=== PATIENT | male | born 1970 | race Caucasian/White ===

== ENCOUNTER 2016-11-09 07:01 | Emergency (ER) | payer SELFPAY ==
--- NOTE | ~2016-11-09 | ER ---
PATIENT'S NAME: PHYLLIS ACEVEDO [facility] AGE: 46 Y [address] ROOM: [place] [address] LOCATION: [facility] ADMIT DATE: 11/09/2016 ER/Outpatient Report DISCHARGE DATE: 11/09/2016 FAMILY PHYSICIAN: PHYSICIAN, NO ATTENDING PHYSICIAN: Yesenia Nunn Time of Arrival: 0701 hours. Time of Evaluation/Seen: 0707 hours. IDENTIFICATION: A 46-year-old male. CHIEF COMPLAINT: Chest pain. HISTORY OF PRESENT ILLNESS: The patient is a 46-year-old male who on Saturday night was changing a tire, since that time, he has had left-sided chest wall pain, worse with cough and deep breathing and movement. No other injury. No history of coronary artery disease, hypertension, diabetes, or hyperlipidemia that he is aware of. The patient has been evaluated for chest pain a few years ago and had a stress test that was normal in February of 2014. He does have a family history of premature coronary artery disease in a brother. PAST MEDICAL HISTORY: ALLERGIES: PENICILLIN. CURRENT MEDICATIONS: Abilify and Lamictal. MEDICAL PROBLEMS: Epilepsy and bipolar disorder. PAST SURGICAL HISTORY: Prior Surgeries: 1. Right shoulder surgery. 2. Left rotator cuff repair. SOCIAL HISTORY: The patient lives here in [place]. 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 He is . Tobacco use, denies. Alcohol use, denies. Drug use, denies. FAMILY HISTORY: PATIENT'S NAME: PHYLLIS ACEVEDO [facility] AGE: 46 Y [address] ROOM: [place] [address] LOCATION: [facility] ADMIT DATE: 11/09/2016 ER/Outpatient Report DISCHARGE DATE: 11/09/2016 FAMILY PHYSICIAN: PHYSICIAN, NO ATTENDING PHYSICIAN: Yesenia Nunn A Brother had coronary artery disease in his 30s. Grandmother had coronary artery disease later in life, and a brother with diabetes. Mother with end- stage renal disease, on dialysis. REVIEW OF SYSTEMS: All systems are reviewed and negative other than what is noted in the HPI. The patient has no associated symptoms. Pain is worse with a deep breath, but no shortness of breath. No diaphoresis. No nausea or vomiting. No radiation of the pain. PHYSICAL EXAMINATION: VITAL SIGNS: Weight 107 kg. Blood pressure 127/86, pulse 66, respiratory rate is 20, temperature 97.1, and sats 92% on room air. GENERAL: A 46-year-old male in no acute distress. HEENT: Head; normocephalic and atraumatic. Ears; TMs translucent in both ears. Nose; mucosa pink, no lesions. Mouth; no lesions. Pharynx, benign. NECK: Supple. No lymphadenopathy. LUNGS: Clear to auscultation. HEART: Regular rate and rhythm. ABDOMEN: Bowel sounds present. Soft, nondistended, and nontender. SKIN: [place], warm, and dry. No lesions or rashes noted. NEUROLOGIC: The patient is alert and oriented x4. Cranial nerves 2 through 12 grossly intact. Motor strength 5/5 throughout. Sensation is intact to light touch. No lower extremity edema. EMERGENCY DEPARTMENT COURSE: The patient is tender to palpation of his left anterior chest wall and that does reproduce his pain. The patient was given 4 baby aspirin. Labs were obtained as well as EKG and chest x-ray. EKG is normal sinus rhythm at 62 beats per minute. No acute ST elevation or depression. T-wave inversion noted in lead III. No change from previous EKG dated 02/26/2014. EKG at 0200 hours, normal sinus rhythm. No acute ST elevation or depression. T-wave inversion in lead III, and no change when compared to earlier EKG. Hemoglobin 15.9, hematocrit 47.5, platelets 184,000, white count 6.2, and normal differential. INR is 0.97. Sodium 140, potassium 3.9, chloride 108, CO2 of 25, BUN 12, creatinine 1.0, and blood sugar 107. Liver enzymes normal. Magnesium 2.3. CPK 112, CK-MB 2.7, and troponin I is less than 0.040. 90- minute enzymes; CPK 105, CK-MB 2.6, and troponin I is less than 0.040. Two- view chest x-ray, no acute process, low lung volumes with crowding of lung markings at the bases, and no acute findings. IMPRESSION AND PLAN: Chest wall pain. Plan: The patient was given 4 baby aspirin on arrival. His pain improved PATIENT'S NAME: CURTIS PHYLLIS D [facility] AGE: 46 Y [address] ROOM: [place] [address] LOCATION: [facility] ADMIT DATE: 11/09/2016 ER/Outpatient Report DISCHARGE DATE: 11/09/2016 FAMILY PHYSICIAN: PHYSICIAN, NO ATTENDING PHYSICIAN: Yesenia Nunn from an 8 to a 7. He is given Toradol 60 mg IM with significant improvement in his pain. Ice as needed. Anti-inflammatories, and follow up with his primary care physician in 2 to 4 days. Follow up sooner if any problems or concerns. The patient understands and agrees, and all questions have been answered. MD GEORGIA BRANHAM/alexis /[id number] d: 11/09/[id number] t: 11/13/16 0649, OUTPATIENT REPORT
[2016-11-09 07:23] LABS: BASOPHIL % 0.5 %; EOSINOPHIL # 0.5 K/uL (0.0-0.5); EOSINOPHIL % 8.1 %; HEMATOCRIT 47.5 % (37.0-53.0); HEMOGLOBIN 15.9 g/dL (12.0-17.0); IMMATURE GRANULOCYTE % 0.5 %; LYMPHOCYTE # 1.6 K/uL (0.8-4.0); LYMPHOCYTE % 26.5 %; MCH 29.4 pg (27.0-34.0); MCHC 33.5 gm/dL (32.0-36.5); MCV 87.8 fl (83.0-98.0); MONOCYTE # 0.7 K/uL (0.0-1.0); MONOCYTE % 11.6 %; MPV 8.6 fl (9.4-12.4); NEUTROPHIL # (ANC) 3.3 K/uL (1.4-9.0); NEUTROPHIL % 52.8 %; NRBC % 0 /100WBC (0-0.00); PLATELET COUNT 184 K/uL (150-450); RBC 5.41 M/uL (4.00-6.00); RDW-CV 12.7 % (11.9-14.6); WBC 6.2 K/uL (4.0-11.0)
[2016-11-09 07:32] LABS: INR - (THERAPEUTIC) 0.97 (0.92-1.07); PROTIME 10.2 SECONDS (9.8-11.4); PTT 31 SECONDS (25-32)
[2016-11-09 07:43] LABS: ALBUMIN 3.6 gm/dL (3.5-5.0); ALK PHOS 88 IU/L (33-138); ALT 51 IU/L (12-78); ANION GAP 10.9 (10.0-19.0); AST 24 IU/L (10-40); BLOOD UREA NITROGEN 12 mg/dL (6-24); CALCIUM 8.2 mg/dL (8.5-10.5); CHLORIDE 108 mMol/L (96-110); CO2 25 mMol/L (22-32); CPK 112 IU/L (35-332); ESTIMATED GFR (MDRD EQUATION) > 60; MAGNESIUM 2.3 mg/dL (1.8-2.6); POTASSIUM 3.9 mMol/L (3.7-5.1); SODIUM 140 mMol/L (135-145); TOTAL PROTEIN 6.7 g/dL (6.0-8.4)
[2016-11-09 09:35] LABS: CPK 105 IU/L (35-332)
== END 2016-11-09 09:45 | disposition disaster alternative care site (69) ==
LOC: GMED 07:01
PROVIDERS: Family Medicine
DX: R07.89 Other chest pain (principal); G40.909 Epilepsy, unspecified, not intractable, without status epilepticus; F31.9 Bipolar disorder, unspecified; Z88.0 Allergy status to penicillin
CPT/HCPCS: J1885